=== PATIENT | female | born 1995 | race Native Hawaiian/Other Pacific Islander ===

== ENCOUNTER 2016-03-12 12:12 | Emergency (ER) | payer OTHER ==
[~2016-03-12] VITALS: Ht 160 cm; Wt 59.0 kg
[~2016-03-12 12:12] MED LIST: CIPRO500 MG PO; CIPROFLOXACIN500 M1 PO; GREEN TEA1 EACH PO
[2016-03-12 12:13] VITALS: BP 103/71
[2016-03-12] MEDS ORDERED: AMOXICILLIN 50500 MG PO (12:43)
[2016-03-12] MEDS ORDERED: MOBIC15 MG PO (12:43)
== END 2016-03-12 13:02 | disposition home or self-care (01) ==
LOC: ER 12:12
DX: H92.02 Otalgia, left ear (principal); R59.1 Generalized enlarged lymph nodes